=== PATIENT | female | born 1935 | race Hispanic/Latino ===

== ENCOUNTER 2018-02-18 09:19 | Observation (INO) | payer MEDICARE ==
[~2018-02-18] VITALS: Ht 157.5 cm; Wt 73.9 kg
[2018-02-18 09:49] LABS: BASOPHILS % (AUTO) 0.5 % (0.0-5.0); EOSINOPHILS % (AUTO) 3.7 % (0.0-8.0); HEMATOCRIT 25.6 % (36-48); LYMPHOCYTES % (AUTO) 24.7 % (21.0-51.0); MEAN CORPUSCULAR HEMOGLOBIN 32.8 pg (27.0-33.0); MEAN CORPUSCULAR HGB CONC 33.8 g/dL (32.0-36.0); MEAN CORPUSCULAR VOLUME 96.9 fL (79-99); MONOCYTES % (AUTO) 4.7 % (3.0-13.0); NEUTROPHILS % (AUTO) 66.4 % (40.0-77.0); NUCLEATED RED BLOOD CELLS 0.1 % (0.0-0.19); PLATELET COUNT (AUTO) 215 K/uL (130-400); RED BLOOD CELL COUNT(AUTO) 2.65 MIL/uL (4.00-5.50); RED CELL DISTRIBUTION WIDTH 15.9 % (11.0-15.5); WHITE BLOOD COUNT (AUTO) 6.7 K/uL (4.8-10.8)
[2018-02-18 10:06] LABS: CREATININE 1.1 mg/dL (0.5-1.5)
[2018-02-18 10:10] LABS: ALBUMIN 3.4 g/dL (3.5-5.0); BILIRUBIN,TOTAL 0.2 mg/dL (0.2-1.0)
[2018-02-18 10:12] LABS: INR 0.93 (0.85-1.15); PARTIAL THROMBOPLASTIN TIME 24.8 SEC (26.3-35.5); PROTHROMBIN TIME 9.8 SEC (9.6-11.6)
[2018-02-18 16:00] VITALS: BP 177/78
[2018-02-18] MEDS ORDERED: MAGNESIUM CITRATE 296 ML SOLUTION ONE (16:01)
[2018-02-18] MEDS ORDERED: LACTULOSE 20 GM/30 ML UDCUP ONE (16:01)
[2018-02-18] MEDS ORDERED: LACTULOSE 20 GM/30 ML UDCUP PO STA (17:29)
[2018-02-18] MEDS ORDERED: MAGNESIUM CITRATE 296 ML SOLUTION PO ONE (18:00)
[2018-02-18] MEDS ORDERED: PEG 3350/NA SULF,BICARB,CL/KCL 4000 ML SOLN PO ONE (18:30)
[2018-02-18 19:00] VITALS: BP 170/81
[2018-02-18] MEDS ORDERED: METOPROLOL TARTRATE 1 MG/ML 5ML VIAL IV PRN (20:00)
[2018-02-18] MEDS ORDERED: HYDRALAZINE HCL 20 MG/ML VIAL IV PRN (20:00)
[2018-02-18] MEDS ORDERED: DEXTROSE 50%-WATER 50 ML DISP.SYRIN IV PRN (20:00)
[2018-02-18] MEDS ORDERED: GLUCAGON 1MG KIT 1 MG ML IM PRN (20:00)
[2018-02-18] MEDS ORDERED: LOSA100T29 PO (20:02)
[2018-02-18] MEDS ORDERED: PIOG45TA64 PO (20:02)
[2018-02-18] MEDS ORDERED: DILT360C32 PO (20:02)
[2018-02-18] MEDS ORDERED: FERR1TAB65 PO (20:02)
[2018-02-18] MEDS ORDERED: ASPI-1012 PO (20:02)
[2018-02-18] MEDS ORDERED: METF-526 PO (20:02)
[2018-02-18] MEDS ORDERED: ISOS20TA9 PO (20:02)
[2018-02-18] MEDS ORDERED: HYDR-4154 PO (20:02)
[2018-02-18] MEDS ORDERED: LEVO50TA11 PO (20:02)
[2018-02-18] MEDS ORDERED: ONDANSETRON HCL 4 MG/2 ML VIAL IVP PRN (20:45)
[2018-02-18] MEDS ORDERED: ACETAMINOPHEN 325 MG TAB PO PRN (20:45)
[2018-02-18] MEDS: INSULIN HUMULIN R 100 UNIT/ML 3ML SQ SCH (21:00)
[2018-02-19] VITALS (22 sets, daily range): BP systolic 128–166; BP diastolic 37–88
[2018-02-19 04:16] LABS: HEMATOCRIT 23.1 % (36-48); MEAN CORPUSCULAR HEMOGLOBIN 32.6 pg (27.0-33.0); MEAN CORPUSCULAR VOLUME 95.8 fL (79-99); PLATELET COUNT (AUTO) 190 K/uL (130-400); RED BLOOD CELL COUNT(AUTO) 2.41 MIL/uL (4.00-5.50); RED CELL DISTRIBUTION WIDTH 15.9 % (11.0-15.5); WHITE BLOOD COUNT (AUTO) 6.6 K/uL (4.8-10.8)
[2018-02-19 04:22] LABS: BAND NEUTROPHILS % (MANUAL) 5 % (0-2); EOSINOPHILS % (MANUAL) 1 % (1-6); LYMPHOCYTES % (MANUAL) 17 % (22-44); MONOCYTES % (MANUAL) 5 % (2-9); SEGMENTED NEUTROPHILS % 72 % (40-70)
[2018-02-19 04:23] LABS: MAN.DIFF COMMENT-IMPRESSION MANUAL DIFFERENTIAL; PLATELET MORPHOLOGY COMMENT ADEQUATE
[2018-02-19 04:24] LABS: CREATININE 0.9 mg/dL (0.5-1.5)
[2018-02-19 05:30] LABS: % IRON SATURATION 11.5 % (22-44)
[2018-02-19] MEDS: INSULIN HUMULIN R 100 UNIT/ML 3ML SQ SCH ×4 (06:27→21:00)
[2018-02-19] MEDS ORDERED: MAGNESIUM CITRATE 296 ML SOLUTION PO SCH (15:30)
[2018-02-19] MEDS ORDERED: PEG 3350/NA SULF,BICARB,CL/KCL 4000 ML SOLN PO SCH (15:30)
[2018-02-19] MEDS: LACTULOSE 20 GM/30 ML UDCUP PO SCH (17:47)
[2018-02-19] MEDS: HYDRALAZINE HCL 25 MG TABLET PO SCH (17:47)
[2018-02-19] MEDS: ISOSORBIDE DINITRATE 20 MG TABLET PO SCH (20:02)
[2018-02-20] VITALS (15 sets, daily range): BP systolic 125–170; BP diastolic 41–79
[2018-02-20 05:31] LABS: BASOPHILS % (AUTO) 0.3 % (0.0-5.0); EOSINOPHILS % (AUTO) 1.8 % (0.0-8.0); HEMATOCRIT 23.4 % (36-48); LYMPHOCYTES % (AUTO) 23.9 % (21.0-51.0); MEAN CORPUSCULAR HGB CONC 34.3 g/dL (32.0-36.0); MEAN CORPUSCULAR VOLUME 96.4 fL (79-99); MONOCYTES % (AUTO) 5.2 % (3.0-13.0); NEUTROPHILS % (AUTO) 68.8 % (40.0-77.0); NUCLEATED RED BLOOD CELLS 0.1 % (0.0-0.19); PLATELET COUNT (AUTO) 182 K/uL (130-400); RED BLOOD CELL COUNT(AUTO) 2.42 MIL/uL (4.00-5.50); RED CELL DISTRIBUTION WIDTH 15.9 % (11.0-15.5); WHITE BLOOD COUNT (AUTO) 6.4 K/uL (4.8-10.8)
[2018-02-20 05:49] LABS: CREATININE 0.8 mg/dL (0.5-1.5); POTASSIUM 3.5 mmol/L (3.5-5.1)
[2018-02-20] MEDS: INSULIN HUMULIN R 100 UNIT/ML 3ML SQ SCH ×2 (06:57→11:30)
[2018-02-20] MEDS ORDERED: LEVOTHYROXINE 50 MCG TABLET PO SCH (07:30)
[2018-02-20] MEDS ORDERED: PANTOPRAZOLE SODIUM 40 MG TABLET.DR PO SCH (07:30)
[2018-02-20] MEDS: HYDRALAZINE HCL 25 MG TABLET PO SCH ×2 (08:00→12:00)
[2018-02-20] MEDS: ISOSORBIDE DINITRATE 20 MG TABLET PO SCH (08:49)
[2018-02-20] MEDS ORDERED: FE FUMARATE/FA/MV, MIN COMB#15 1 TAB PO SCH (09:00)
[2018-02-20] MEDS ORDERED: LOSARTAN 100 MG TABLET PO SCH (09:00)
[2018-02-20] MEDS ORDERED: DILTIAZEM HCL 180 MG CAP.SR.24H PO SCH (09:00)
[2018-02-20] MEDS ORDERED: MIDAZOLAM HCL 1 MG/ML 2ML VIAL ONE (13:39)
[2018-02-20] MEDS ORDERED: MEPERIDINE-PF 50 MG/ML SYG ONE (13:39)
[2018-02-20] MEDS: LACTULOSE 20 GM/30 ML UDCUP PO SCH (14:59)
== END 2018-02-20 17:50 | disposition home or self-care (01) ==
LOC: EDH 09:19 → EDHIP 11:00 → 4AH 15:19
PROVIDERS: ADMIT Internal Medicine Nephrology; ATTEND Internal Medicine Nephrology
DX: K92.2 Gastrointestinal hemorrhage, unspecified (principal); K64.0 First degree hemorrhoids; D62 Acute posthemorrhagic anemia; C18.9 Malignant neoplasm of colon, unspecified; K22.8 Other specified diseases of esophagus; K21.0 Gastro-esophageal reflux disease with esophagitis; E03.9 Hypothyroidism, unspecified; E11.9 Type 2 diabetes mellitus without complications; E78.5 Hyperlipidemia, unspecified; I10 Essential (primary) hypertension; I34.0 Nonrheumatic mitral (valve) insufficiency; I44.7 Left bundle-branch block, unspecified; K55.20 Angiodysplasia of colon without hemorrhage; K63.3 Ulcer of intestine; M19.90 Unspecified osteoarthritis, unspecified site; M81.0 Age-related osteoporosis without current pathological fracture; Z90.710 Acquired absence of both cervix and uterus; Z90.721 Acquired absence of ovaries, unilateral; Z79.899 Other long term (current) drug therapy
CPT/HCPCS: 36415 ×3; 43239; 45378 ×2; 80048 ×2; 80053; 82607; 82728; 82746; 82948 ×8; 83540; 83550; 85025 ×3; 85610; 85730; 86850; 86900; 86901; 88305; 88312; 93005 ×2; 96374; 99285; G0378 ×55; J0360; J2175; J2250; 99152; 99153